=== PATIENT | male | born 1930 | race Asian ===

== ENCOUNTER → 2016-03-04 | Day surgery (SDC) | payer OTHER ==
[~2016-03-04] VITALS: Ht 160 cm; Wt 68.0 kg
[~2016-03-04] MED LIST: ACETAMINOPHEN 325 MG TAB PO PRN; ASPEC81 PO; ATEN-173 PO; ATOR-54 PO; B-COTAB18 PO; BROM0.07 OPL; FENTANYL CITRATE INJ 50 MCG/1 ML 2 ML VIAL ONE; FLM4 PO; GATI0.5S OPL; ISOS60TA2 PO; LEVO75TA5 PO; METF500T PO; MIDAZOLAM HCL 1 MG/ML 2ML VIAL ONE; NITR0.4S UT; PRED1SUS3 OPL; PRLSR20 PO; PRSUNK PO; SODIUM CHLORIDE 0.9% 1000ML 1,000 ML IV SCH
[2016-03-04 07:47] VITALS: BP 164/63; PULSE 56; TEMP 36.8; O2SAT 96; Ht 160 cm; Wt 68.0 kg
--- NOTE | 2016-03-04 11:11 | Procedure Note ---
Pre-Mod Sedation Assessment General Date of Moderate Sedation: Mar 04, 2016. Vital Signs: Vital Signs Past 12 Hours Date Time Temp Pulse Resp B/P Pulse Ox O2 Delivery O2 Flow Rate FiO2 03/04/16 07:47 36.8 56 16 164/63 96 Room Air Review Cardiovascular: regular rate, rhythm, no edema, no JVD Abdomen: non tender, soft Lungs: lungs clear, normal breath sounds Airway Class: II Pre-Sedation Airway Assessment Oral Cavity: Dentures Able to Visualize Vocal Cords: No Short Thick Neck: No Hx of Sleep Apnea: No Smoking Status: Former Smoker Mallampati Classification: Class II ASA Classification: Class II Procedure Planning Contraindications-for Mod Sed: None Yes Notes The planned sedation has been discussed with the patient and consent obtained. I have identified the patient, determined the appropriateness of sedation and have assessed the patient immediately prior to the procedure. All medicine(s) and interventions are by my order.
--- NOTE | 2016-03-04 12:37 | Procedure Note ---
Post-Mod Sedation Assessment General Date of Moderate Sedation Mar 04, 2016. Vital Signs: Vital Signs Past 12 Hours Date Time Temp Pulse Resp B/P Pulse Ox O2 Delivery O2 Flow Rate FiO2 03/04/16 12:30 56 16 156/67 97 Room Air 03/04/16 12:25 61 16 157/82 99 Room Air 03/04/16 12:20 62 16 160/84 99 Room Air 03/04/16 12:15 60 16 156/62 98 Room Air 03/04/16 07:47 36.8 56 16 164/63 96 Room Air Review - Discharge Criteria Vital Signs Stable: Yes Alert/Oriented/Conversant: Yes Returned to Baseline Mental St: Yes Nausea Absent/Minimal: Yes Pain/Discomfort/Absent/Minimal: Yes Normal/Baseline Respirations: Yes Active Bleeding?: No Pt Received D/C Instructions: Yes Prescriptions Given: None Specific Proced. D/C Criteria Distal Pulses Present (Cardiac: Yes Groin site assessed-Card Cath: Yes Voided Prior To Discharge: N/A Discharged Patients Adult Escort/Transportation: Yes
--- NOTE | 2016-03-04 13:12 | Cardiac Catheterization ---
Procedure Note Procedure Date Mar 04, 2016. Pre-Procedure Diagnosis Angina, Positive Stress Test, CAD AUC Score 7 Post-Procedure Diagnosis Severe CAD Procedure(s) Performed Coronary Angiography, Aortography, Femoral Artery Angiography Barrel Polisher Dr. Duncan [employer] Administrative Assistant(s) Alexandra Estimated Blood Loss 25 Medication(s) Fentanyl, Versed, Lidocaine 1% Summary of Findings Indication: History of CAD s/p 3vCABG 1994, + stress test, angina Access: 6Fr Right Femoral Catheters: JR4, JL4, JEFF, Multipurpose, Pigtail Findings: LM - Long, 20-30% distal disease LAD - Subtotal occlusion in proximal segment, completely occluded at take-off of 1st diagonal. Circumflex - 30% ostial disease, mild mid segment disease. Large high OM1 without significant disease. No evidence of competitive flow in circumflex system RCA - Occluded in proximal segment HOFF-LAD - Patent. No disease at anastomosis. 70-80% stenosis in small distal , apical segment. HOFF retrofills mid LAD and 1st diagonal. In mid LAD there is a 90% stenosis. SVG-RCA - Patent. No disease at anastomosis to R-PLB. Retrofills small PDA. Sequential 70% lesions in distal and mid RCA. SVG-OM - Occluded at ostium. Aortography - Mild AI. No evidence of thoracic aortic aneurysm. - No infrarenal abdominal aortic aneurysm. Atherosclerotic plaque present. 30-40% ostial right iliac stenosis. No other significant iliac disease. Arterial Closure: Mynx Summary: 1. Severe 2 vessel [place] coronary artery disease - Occluded proximal LAD. - Occluded proximal RCA - Mild circumflex disease 2. Patient HOFF-LAD, SVG-RCA. Occluded SVG-Ramus - Distal LAD 70-80% stenosis after HOFF anastomosis (Vessel too small for intervention). Mid LAD 90% stenosis upstream from HOFF anastomosis Recommendations: Medical management of non-intervenable [place] coronary artery disease. High-dose statin Continued risk factor modification Hemodynamics Rest Ao: 154/58/94 Final Ao: 150/62/98 LV: n/a Recommendations Medical therapy and/or Counseling Specimens None Radiation Exposure (mGy) 2153 Contrast (mls) 165 Fluids (cc crystalloids) 130 Drains None Anesthesia Moderate Procedural Complication(s) None Disposition Investigator Internal Affairs Holding/Recovery ACC Data Cardiac Status Clinical evaluation leading to the procedure CAD Presntation: Stable angina, Positive Stress Test Anginal Classification: CCS III Heart Failure: No Cardiogenic Shock w/in 24Hrs: No Cardiac Arrest w/in 24Hrs: No Imaging studies past 6 months: Yes Stress studies past 6 months: Yes Standard Exercise Stress Test: No Stress Echocardiogram: No Stress Testing w/SPECT MPI: Yes - Positive, Risk/Extent of Ischemia (High) Cardiac CTA: No Coronary Anatomy Dominant: Right Left Main (% Stenosis): Distal (30) LAD (% Stenosis): Proximal (99), Mid (100, 90%), Distal (75) Circumflex (% Stenosis): Ostial (30) RCA (% Stenosis): Proximal (100) Grafts - LAD (%): Normal Grafts - Circumflex (%): Ostial (100) Grafts - RCA (%): Normal Diagnostic Physician's Name: Giorgio Duncan MD Status: Elective Closure Device Percutaneous Entry Location: Femoral Closure Device: Mynx Recommendations: Medical therapy and/or Counseling Intraprocedure Events Significant Dissection: No Perforation: No
--- NOTE | 2016-03-04 13:21 | Discharge Instructions ---
Discharge Instructions Procedure Procedure Date: Mar 04, 2016. Reason for Visit: Chest Pain. Discharge Discharge Date: Mar 04, 2016. Discharge Diagnosis: Coronary artery disease Last Recorded Wt (Kilograms): 68 Medications Stopped Medication(s): Hold Metformin for 48 hours post procedure Anesthesia Post Anesthesia Instructions: If you have had General Anesthesia or IV Sedation: * Do not drive today. * Resume driving when surgeon permits. * Do not make important decisions or sign legal documents today. * Call surgeon for: 1. Temperature elevations greater than 101 degrees F. 2. Uncontrollable pain. 3. Excessive bleeding. 4. Persistent nausea and vomiting. 5. Medication intolerance (nausea, vomiting or rash). * For nausea and vomiting use only clear liquids such as: tea, soda, bouillon until nausea subsides, then gradually increase diet as tolerated. * If you have any concerns or questions, call your surgeon's office. If physician is unavailable and it is an emergency, call 911 or go to the nearest emergency room. Instructions Activity Recommendations: limitations as noted below (Avoid flexing right hip for 24 hours. No heavy lifting (>20 lbs) for 72 hours. Resume normal activites gradually after 72 hours), shower/bathe limit (No soaking bath for 72 horus) Recommended Home Diet: resume previous diet Allergies: Coded Allergies: Milk (Verified Adverse Reaction, Unknown, GI SYMPTOMS, 08/08/15) DOESN'T TOLERATE COLD MILK Follow Up Follow-up with: Follow-up with Gayla Mohan in 2-3 weeks. Rebeka Beard Recommendations: Call your doctor if: * Temperature above 101 degrees * Pain not relieved by pain medicine ordered * There is increased drainage or redness from any incision * You have any unanswered questions or concerns. Your Doctors Instructions noted above were prepared by provider Dae Duncan. Patient Signature Section: Patient Instructions Signature Page Dara Vaughn Patient (or Guardian) Signature/Date: I have read and understand the instructions given to me by my caregivers. Caregiver/RN/Doctor Signature/Date: The above-named patient and/or guardian has received patient instructions on this date. + Original Patient Signature Page (only) stays with chart. Please make copy for patient.
[2016-03-04 16:00] VITALS: BP 165/72; PULSE 54; O2SAT 99
--- NOTE | 2016-03-25 06:35 | EDITING REQUIRED CODING QUERY ---
SUPPORTING DIAGNOSIS NEEDED Dr. Duncan, A supporting diagnosis is required for the test/procedure performed on this patient in order for us to be reimbursed by the patient's insurance. Please provide a supporting diagnosis for the following test/procedure listed below next to the test name along with your signature. *If there is no additional diagnosis for this patient that would support the following test/procedure please document that below next to the test/procedure. Test(s)/Procedure(s) that require a supporting diagnosis: * ([id number]) ABDOMEN AORTOGRAM DIAGNOSIS: Common iliac artery stenosis DATE OF SERVICE: 03/04/16 Provider Signature: Date: Thank you Doug Paez [facility] Information Management Once completed, please kindly fax back to [phone] For questions please call [phone]
== END | disposition home or self-care (01) ==
LOC: C.CATH 06:47
PROVIDERS: ATTEND Internal Medicine Interventional Cardiology
DX: I25.119 Atherosclerotic heart disease of native coronary artery with unspecified angina pectoris (principal); Z95.1 Presence of aortocoronary bypass graft; I10 Essential (primary) hypertension; E78.00 Pure hypercholesterolemia, unspecified; Z80.42 Family history of malignant neoplasm of prostate; Z82.49 Family history of ischemic heart disease and other diseases of the circulatory system; N40.0 Benign prostatic hyperplasia without lower urinary tract symptoms; Z79.82 Long term (current) use of aspirin; I77.1 Stricture of artery

== ENCOUNTER → 2016-05-02 | Outpatient (CLI) | payer OTHER ==
[~2016-05-02] MED LIST changes: -ACETAMINOPHEN 325 MG TAB PO PRN; -ASPEC81 PO; -B-COTAB18 PO; -BROM0.07 OPL; -FENTANYL CITRATE INJ 50 MCG/1 ML 2 ML VIAL ONE; -GATI0.5S OPL; -METF500T PO; -MIDAZOLAM HCL 1 MG/ML 2ML VIAL ONE; -NITR0.4S UT; -PRED1SUS3 OPL; -PRLSR20 PO; -SODIUM CHLORIDE 0.9% 1000ML 1,000 ML IV SCH
[2016-05-02 09:40] LABS: ALT/SGPT 28 U/L (12-78); AST/SGOT 30 U/L (15-37); BLOOD UREA NITROGEN 16 mg/dl (7-18); BUN/CREATININE RATIO 19.5 (10-20); CALCIUM 8.8 mg/dl (8.5-10.1); CARBON DIOXIDE 28 mmol/L (21-32); CHLORIDE 106 mmol/L (98-107); CREATININE 0.84 mg/dl (0.60-1.40); GLUCOSE 114 mg/dl (70-99); POTASSIUM 4.1 mmol/L (3.5-5.1); SODIUM 143 mmol/L (136-145)
[2016-05-02 09:50] LABS: CHOLESTEROL 97 mg/dl (0-200); CHOLESTEROL/HDL RATIO 2.6; HDL CHOLESTEROL 37 mg/dl; LDL CHOLESTEROL CALCULATED 27 mg/dl; TRIGLYCERIDES 163 mg/dl (0-150); VERY LOW DENSITY LIPOPROT CALC 33 mg/dl
[2016-05-02 11:08] LABS: ESTIMATED AVERAGE GLUCOSE 128 mg/dl; HA1C FLAG Normal (Normal)
== END | disposition home or self-care (01) ==
LOC: C.LAB1850 07:18
PROVIDERS: ATTEND Internal Medicine
DX: R73.9 Hyperglycemia, unspecified (principal); E03.9 Hypothyroidism, unspecified; E78.00 Pure hypercholesterolemia, unspecified; I25.10 Atherosclerotic heart disease of native coronary artery without angina pectoris

== ENCOUNTER → 2016-08-22 | Outpatient (CLI) | payer OTHER ==
[2016-08-23 06:55] LABS: ESTIMATED AVERAGE GLUCOSE 137 mg/dl; HA1C FLAG Normal (Normal)
[2016-08-26 15:57] LABS: ALBUMIN 3.4 G/DL (3.8-4.8); TOTAL PROTEIN 6.1 G/DL (6.2-8.3)
--- NOTE | 2016-08-27 08:14 | CODING QUERY MEDICAL NECESSITY ---
SUPPORTING DIAGNOSIS NEEDED A supporting diagnosis is required for the test/procedure performed on this patient in order for us to be reimbursed by the patient's insurance. Please provide a supporting diagnosis for the following test/procedure listed below next to the test name along with your signature. *If there is no additional diagnosis for this patient that would support the following test/procedure please document that below next to the test/procedure. Test(s)/Procedure(s) that require a supporting diagnosis: * VITAMIN B12 DIAGNOSIS: Provider Signature: Date: Thank you Vanessa [place] [employer] Information Management Once completed, please kindly fax back to [phone] For questions please call [phone]
== END | disposition home or self-care (01) ==
LOC: C.LAB1850 15:47
PROVIDERS: ATTEND Psychiatry & Neurology Neurology
DX: G62.9 Polyneuropathy, unspecified (principal); R73.9 Hyperglycemia, unspecified

== ENCOUNTER → 2016-12-13 | Outpatient (CLI) | payer OTHER ==
[2016-12-13 09:29] LABS: BASO % 0.4 %; BASO ABS # 0.02 K/uL (0-0.2); COMPLETE YES; EOS % 4.3 %; HEMATOCRIT 41.6 % (42-52); LYMPH % 44.2 %; LYMPH ABS # 1.97 K/uL (1.2-3.4); MEAN CELL VOLUME 88.9 fL (80-100); MEAN CORPUSCULAR HEMOGLOBIN 29.3 pg (25-34); MEAN CORPUSCULAR HGB CONC 32.9 g/dl (32-36); MEAN PLATELET VOLUME 10.1 fL (7.4-10.4); MONO % 6.1 %; PLATELET COUNT 221 K/uL (130-400); RED BLOOD COUNT 4.68 M/uL (4.7-6.1); WHITE BLOOD COUNT 4.46 K/uL (4.8-10.8)
[2016-12-13 09:40] LABS: ALT/SGPT 28 U/L (12-78); AST/SGOT 35 U/L (15-37); BLOOD UREA NITROGEN 19 mg/dl (7-18); BUN/CREATININE RATIO 20.9 (10-20); CALCIUM 8.4 mg/dl (8.5-10.1); CARBON DIOXIDE 29 mmol/L (21-32); CHLORIDE 106 mmol/L (98-107); GLUCOSE 102 mg/dl (70-99); POTASSIUM 4.4 mmol/L (3.5-5.1); SODIUM 139 mmol/L (136-145)
[2016-12-13 09:51] LABS: CHOLESTEROL 81 mg/dl (0-200); CHOLESTEROL/HDL RATIO 2.7; HDL CHOLESTEROL 30 mg/dl; LDL CHOLESTEROL CALCULATED 26 mg/dl; TRIGLYCERIDES 123 mg/dl (0-150); VERY LOW DENSITY LIPOPROT CALC 25 mg/dl
[2016-12-13 10:25] LABS: ESTIMATED AVERAGE GLUCOSE 131 mg/dl; HA1C FLAG Normal (Normal)
[2016-12-16 15:51] LABS: ALBUMIN 3.4 G/DL (3.8-4.8); GAMMA GLOBULIN 1.2 G/DL (0.8-1.7); TOTAL PROTEIN 6.7 G/DL (6.2-8.3)
== END | disposition home or self-care (01) ==
LOC: C.LAB1850 07:29
PROVIDERS: ATTEND Internal Medicine
DX: E78.00 Pure hypercholesterolemia, unspecified (principal); I25.10 Atherosclerotic heart disease of native coronary artery without angina pectoris; R73.9 Hyperglycemia, unspecified; G62.9 Polyneuropathy, unspecified

== ENCOUNTER → 2017-04-03 | Outpatient (CLI) | payer OTHER | END | disposition home or self-care (01) | LOC: C.LABSPEC 17:23 | PROVIDERS: ATTEND Urology | DX: H81.10 Benign paroxysmal vertigo, unspecified ear (principal); N39.0 Urinary tract infection, site not specified ==

== ENCOUNTER 2018-06-10 14:47 | Inpatient (IN) ==
[2018-06-10 15:45] LABS: Basophils # (auto) 0.01 K/uL (0-0.2); Basophils % (auto) 0.2 %; Eosinophils % (auto) 2.1 %; Hematocrit (blood only) 38.2 % (42-52); Hemoglobin 12.4 g/dL (14.0-18.0); Immature Granulocytes # (auto) 0.01 K/uL (0.00-0.02); Immature Granulocytes % (auto) 0.2 %; Lymphocytes # (auto) 1.25 K/uL (1.2-3.4); Lymphocytes % (auto) 26.8 %; Mean Corpuscular Hgb Conc 32.5 g/dL (32-36); Mean Corpuscular Volume 88.4 fL (80-100); Mean Platelet Volume 10.9 fL (7.4-10.4); Monocytes # (auto) 0.33 K/uL (0.11-0.59); Monocytes % (auto) 7.1 %; Neutrophils # (auto) 2.96 K/uL (1.4-6.5); Neutrophils % (auto) 63.6 %; Platelet Count 196 K/uL (130-400); RDW Coefficient of Variation 13.3 % (11.5-14.5); RDW Standard Deviation 42.8 fL (36.4-46.3); Red Blood Count 4.32 M/uL (4.7-6.1); White Blood Count 4.66 K/uL (4.8-10.8)
[2018-06-10 15:46] LABS: pH VBG 7.37 (7.36-7.41)
--- NOTE | 2018-06-10 15:57 | XRay Report ---
XR chest 1V portable CLINICAL HISTORY: 87 years-old Male presenting with Dyspnea. TECHNIQUE: Portable upright AP view of the chest was obtained. COMPARISON: 08/05/2011. FINDINGS: Median sternotomy wires and mediastinal surgical clips unchanged. Cardiac silhouette moderately enlar ged. Pulmonary vascular prominence noted. Bronchial wall cuffing. Mildly low lung volumes. Minimal ba silar opacities. No pleural effusion or pneumothorax. Degenerative changes of the thoracic spine. Upp er abdomen normal. IMPRESSION: 1. Cardiac megaly with volume overload and congestive change. No malika pulmonary edema. 2. Bibasilar atelectasis with mildly low lung volumes. Electronically signed by: Jonn Mena M.D. 06/10/2018 3:56 PM
[2018-06-10 16:03] LABS: Alanine Aminotransferase 30 U/L (12-78); Albumin Level 3.5 gm/dl (3.4-5.0); Aspartate Aminotransferase 55 U/L (15-37); BUN Creatinine Ratio 14.4 (10-20); Blood Urea Nitrogen 11 mg/dl (7-18); Calcium 8.4 mg/dl (8.5-10.1); Carbon Dioxide 27 mmol/L (21-32); Chloride 109 mmol/L (98-107); Creatinine Clr Calc Pharmacy 57.5 ml/min; Est GFR (African American) 93.1; Est GFR (Non-African American) 80.3; Glucose 87 mg/dl (70-99); Magnesium 1.8 mg/dl (1.8-2.4); Potassium 4.1 mmol/L (3.5-5.1); Sodium 140 mmol/L (136-145)
[2018-06-10 16:07] LABS: Alkaline Phosphatase 53 U/L (45-117); Bilirubin,Total 0.6 mg/dl (0.2-1); Globulin 3.6 gm/dl (2.5-4.0); Total Protein 7.1 gm/dl (6.4-8.2); Troponin I < 0.015 ng/ml (0-0.045)
[2018-06-10 16:37] LABS: Partial Thromboplastin Ratio 0.9; Partial Thromboplastin Time 25.1 Seconds (21.0-31.0); Prothrombin Time 10.7 Seconds (9.0-12.0)
[2018-06-10] MEDS ORDERED: FUROSEMIDE 40 MG/4 ML VIAL IV STA (17:29)
--- NOTE | 2018-06-10 17:44 | History & Physical Report ---
Date of Service June 10, 2018 Assessment & Plan (1) Hypoxia: - Admit to tele with worsening respiratory status with possible new onset CHF. - O2 sats initially dropped to 87% while in the ER, pt was placed on 2 L O2 and sats have been stable in high 90s. - CXR reviewed with volume overload - lasix 40 mg IV administered and working well. No further lasix at this time, reasses in am pending urine outs and follow PRP for changes in Cr. - Monitor strict I/Os, daily weights - Wean O2 as able, does not use at home. (2) CAD (coronary artery disease) of artery bypass graft: - Continue atenolol 25 mg daily, atorvastatin 40 mg daily, imdur 60 mg da yordy - CXR showing increased volume overload - Trend cardiac biomarkers, initial set was negative - EKG reviewed as above - Check 2 D echo - PT/OT consulted (3) Hyperlipidemia: - Cont statin (4) Hypertension: - Cont BP meds as above (5) GERD (gastroesophageal reflux disease): - Continue omeprazole (6) Type 2 diabetes mellitus: - hold metformin - ISS with accuchecks achs - A1C = 6.7 last summer, will recheck with am labs (7) BPH (benign prostatic hyperplasia): - Continue Flomax and Proscar - No issues with urination since being given lasix. If decreased outs then bladder scan to measure if retaining. (8) Benign essential tremor: - Continue vitamin supplementation, well controlled (9) Peripheral neuropathy: - Continue lyrica - Pt is following with neurology as outpatient. He has had EMG performed as outpatient - Likely worsening neuropathy due to edema in feet with possible new onset CHF (10) Hypothyroidism: - Continue levothyroxine 75 mcg daily (11) DVT prophylaxis: - [employer] Conveyor Installer ipad was used during my visit with the patient as the patient is primarly Slovak speaking with very broken Albanian. No family was at bedside during my exam. History of Present Illness Primary Care Provider: Darin Campbell MD This is a 87 yo Slovak speaking M with PMhx of CAD s/p CABG x 3in 1994 for an acute HI, HTN, HLD, osteoarthritis, BPH with LUTS, GERD, hypothyroidism, peripheral neuropathy, and benign essential tremor who presents with worsening shortness of breath. Pt notes this has been coming on for 20-24 days and progressively worsening. He was walking this morning and had significant shortness of breath, he denies any chest pain or discomfort. He does not need oxygen at home. He feels swollen in his legs and feet, and feels his neuropathy in both feet is worse in the past few days. When questioned about diet and he considers it well balanced. He drinks alcohol very rarely. Pt typically is able to walk for 30 minutes at a time, and does this for routine exercise 3x per week. Pt reports being treated for pneumonia about 6 months ago, and has not felt up to his baseline since then. He does follow routinely with cardiology- Dr. Yuen. Pt was last seen 1 month ago as routine f/u and everything at that appointment went well, no med changes. Pt has been administered 1 dose of Lasix 40 mg IV and has been up walking without difficult to urninate now 3x. CXR reviewed showing volume overload. Allergies Allergy/AdvReac Type Severity Reaction Status Date / Time milk AdvReac Unknown GI SYMPTOMS Verified 06/10/18 16:22 Home Medications Home Medications Medication Instructions Recorded Confirmed Type aspirin [Aspir-81] 81 mg PO DAILY 02/26/18 06/10/18 History atenolol [Tenormin] 25 mg PO DAILY 02/26/18 06/10/18 History atorvastatin [Lipitor] 40 mg PO DAILY 02/26/18 06/10/18 History finasteride [Proscar] 5 mg PO DAILY 02/26/18 06/10/18 History isosorbide mononitrate 60 mg PO DAILY 02/26/18 06/10/18 History levothyroxine [Synthroid] 75 mg PO DAILY 02/26/18 06/10/18 History lidocaine 1 applic TOPICAL TID PRN 02/26/18 06/10/18 History metformin [Glucophage] 500 mg PO Q12 02/26/18 06/10/18 History nitroglycerin [Nitrostat] 0.4 mg SUBLINGUAL UD PRN 02/26/18 06/10/18 History omeprazole 20 mg PO DAILY 02/26/18 06/10/18 History pregabalin [Lyrica] 150 mg PO BID 02/26/18 06/10/18 History tamsulosin [Flomax] 0.4 mg PO DAILY 02/26/18 06/10/18 History vitamin B complex 1 tab PO DAILY 06/10/18 06/10/18 History Past Med/Surg History Medical History Hypoxia Hypothyroidism Peripheral neuropathy Benign essential tremor Osteoarthritis CAD (coronary artery disease) of artery bypass graft BPH (benign prostatic hyperplasia) Hyperlipidemia GERD (gastroesophageal reflux disease) Type 2 diabetes mellitus Hypertension Surgical History History of coronary artery bypass graft Family History Other No significant family history Social History Preferred Language: Slovak Current Living Situation: Alone Feels Safe at Home: Yes Smoking Status: Never smoker Review of Systems Constitutional: No fever, sweats or chills Eyes: No diplopia, no worsening or blurred vision ENT: normal hearing, no trouble swallowing Respiratory: No cough, sputum, + ARIZMENDI and SOB as per HPI. Cardiovascular: No chest pain, tightness or palpitations Abdomen: No pain, nausea, + bloating, no vomiting, diarrhea or constipation Musculoskeletal: No joint pain, calf pain, swelling Neurologic: No weakness, + burning sensation in feet bilaterally, no balance problems Psychiatric: No anxiety or depression Skin: No rash or itch Physical Exam Vital Signs (Past 24 Hours): Last Vital Signs Temp 36.8 C 06/10/18 14:49 Pulse 55 L 06/10/18 17:32 Resp 18 06/10/18 17:32 BP 171/82 H 06/10/18 17:32 Pulse Ox 97 06/10/18 17:32 Physical Exam: General: awake, alert, no apparent distress, + Slovak speaking Head: Normocephalic, atraumatic ENT: PERRL, EOMI, no pharyngeal exudate, mucous membranes moist Chest: Clear to auscultation, on 2L via NC, no adventitious breath sounds Cardiac: Regular rate and rhythm, no murmur, no JVD, normal peripheral pulses, good capillary refill Abdominal: NABS x 4 quadrants, soft, +mildly distended, nontender to palpation, no rebound, guarding or tenderness Extremities: Normal inspection, 1+ nonpitting peripheral edema bilaterally, no erythema, calfs nontender to palpation Psych: Normal mood and affect Neuro: AAO x 3, strength intact bilaterally and related 5/5, no motor deficits, speech is clear Constitutional: WD/WN, vitals as above Eyes: normal visual lopez by confrontation and + anicteric sclerae Neck: normal visual inspection and trachea midline Respiratory: normal respiratory effort; no respiratory distress Auscultation: + crackles; no wheezes Cardiovascular: Rate/Rhythm: regular rate and regular rhythm Gastrointestinal (Abdomen): Inspection/Auscultation: abdomen not distended Percussion/Palpation: abdomen soft; abdomen nontender Musculoskeletal: Head/Neck/Chest: normocephalic and head atraumatic 2+ pitting LE edema, + pedal pulses Skin: no rashes, warm and dry Neurologic: awake; not confused Speech / Cognition: normal speech Psychiatric: A+Ox3, euthymic affect Lymphatic: Exam as done by Vanessa Gonzalez DO Results & Data Diagnostic Findings XR chest 1V portable CLINICAL HISTORY: 87 years-old Male presenting with Dyspnea. TECHNIQUE: Portable upright AP view of the chest was obtained. COMPARISON: 08/05/2011. FINDINGS: Median sternotomy wires and mediastinal surgical clips unchanged. Cardiac silhouette moderately enlarged. Pulmonary vascular prominence noted. Bronchial wall cuffing. Mildly low lung volumes. Minimal basilar opacities. No pleural effusion or pneumothorax. Degenerative changes of the thoracic spine. Upper abdomen normal. IMPRESSION: 1. Cardiac megaly with volume overload and congestive change. No malika pulmonary edema. 2. Bibasilar atelectasis with mildly low lung volumes. ECG Additional Comments: 10-JUN-2018 15:45:32 [facility] Sinus bradycardia with sinus arrhythmia Possible Anterior infarct (cited on or before 24-JUL-2003) Abnormal ECG When compared with ECG of 29-NOV-2011 09:27, Premature atrial complexes are no longer Present Nonspecific T wave abnormality, improved in Lateral leads 25mm/s 10mm/mV 150Hz 8.0 SP2 12SL 241 JAJA: 15 Referred by: Unconfirmed Vent. rate 51 BPM NC interval 176 ms QRS duration 86 ms QT/QTc 516/475 ms P-R-T axes * 66 82 Code Status & VTE Plan Code Status Full - discussed at bedside Supervising Physician Co-Signing Physician Notes Pt seen and examined by me. States his breathing is better. No chest pain, n/v. Ate dinner in the ED without issue. Has been urinating frequently s/p lasix Agree with HPI/ROS as noted by PA See above for my exam in PE section Agree with plan as outlined above CHF exacerbation, new dx ECHO pending Lasix Monitor trops
[2018-06-10 17:46] LABS: NT Pro B Type Natriuretic Pept 746 pg/ml (0-1800)
[2018-06-10] MEDS ORDERED: ACETAMINOPHEN 325 MG TAB PO PRN (18:07)
[2018-06-10] MEDS ORDERED: DEXTROSE 50% 50 ML SYRINGE IV PRN (18:07)
[2018-06-10] MEDS ORDERED: CARBOHYDRATES FOR HYPOGLYCEMIA PO PRN (18:07)
[2018-06-10] MEDS ORDERED: GLUCOSE 40% GEL 15 GM TUBE PO PRN (18:07)
[2018-06-10] MEDS ORDERED: ONDANSETRON INJ 2 MG/ML 2 ML VIAL IV PRN (18:07)
[2018-06-10] MEDS ORDERED: GLUCOSE 10 TABS/TUBE PO PRN (18:07)
[2018-06-10] MEDS ORDERED: NITROGLYCERIN SL 0.4 MG/TAB TAB SL PRN (18:09)
[2018-06-10] MEDS ORDERED: LIDOCAINE 4% CREAM 15 GM TUBE EXT PRN (18:09)
[2018-06-10 18:40] LABS: Appearance Urine Clear (Clear); Bacteria Urine Automated Negative (Negative); Bilirubin Urine Negative (Negative); Blood Urine Negative (Negative); Color Urine Yellow; Epithelial Cell Urine Auto 0-5 /lpf (0-5); Glucose Urine UA Negative (Negative); Ketones Urine Negative (Negative); Leukocyte Esterase Urine Trace (Negative); Nitrite Urine Negative (Negative); Protein Urine Negative (Negative); RBC Urine Automated 0-4 /hpf (0-4); Specific Gravity Urine 1.011 (1.000-1.030); Urobilinogen Urine Negative (Negative); pH Urine 6.5 (4.5-7.5)
[2018-06-10] MEDS ORDERED: GLUCAGON FOR INJ 1 MG VIAL IM PRN (19:15)
[2018-06-10] MEDS: INSULIN ASPART 100 UNITS/ML 3 ML PEN SC SCH (22:05)
[2018-06-10] MEDS: ENOXAPARIN INJ 40 MG/0.4 ML SYR SQ SCH (22:10)
[2018-06-10] MEDS: PREGABALIN 150 MG CAP PO SCH (22:19)
[2018-06-10] MEDS: METFORMIN HCL 500 MG TAB PO SCH (22:25)
--- NOTE | 2018-06-10 23:33 | Emergency Department Note ---
Entered by Nicole Edwards acting as a scribe for History of Present Illness General Chief complaint: Respiratory Problems Stated complaint: LUNG PROBLEM Time Seen by Provider: 06/10/18 15:07 Source: patient Mode of arrival: ambulatory Limitations: no limitations History of Present Illness Provider complaint: shortness of breath Onset (ago): month(s) 1 Location: chest Pain Consistency: + other (persistent) Quality: + other (SOB) Associated symptoms: + cough; no chest pain The patient is an 87 year old male with a past medical history of HTN, hyperlipidemia, tyle 2 diabetes, GERD, BPH, hypothyroidism, and CAD s/p CABG who presents to the Emergency Room with complaints of a persistent shortness of breath that began a month ago. The patient denies any chest pain or leg swelling but notes he does have a mild cough in the mornings. He also denies any recent travels or antibiotic use as well as any sick contacts. He notes that his current symptoms do not feel similar to his prior heart attack. The patient also reports that he was evaluated at [facility] prior to arrival and was referred to the ER for a suspected pneumonia. He denies any tobacco use or history of blood clots. Home Medications Home Medications Medication Instructions Recorded Confirmed Type aspirin [Aspir-81] 81 mg PO DAILY 02/26/18 06/10/18 History atenolol [Tenormin] 25 mg PO DAILY 02/26/18 06/10/18 History atorvastatin [Lipitor] 40 mg PO DAILY 02/26/18 06/10/18 History finasteride [Proscar] 5 mg PO DAILY 02/26/18 06/10/18 History isosorbide mononitrate 60 mg PO DAILY 02/26/18 06/10/18 History levothyroxine [Synthroid] 75 mg PO DAILY 02/26/18 06/10/18 History lidocaine 1 applic TOPICAL TID PRN 02/26/18 06/10/18 History metformin [Glucophage] 500 mg PO Q12 02/26/18 06/10/18 History nitroglycerin [Nitrostat] 0.4 mg SUBLINGUAL UD PRN 02/26/18 06/10/18 History omeprazole 20 mg PO DAILY 02/26/18 06/10/18 History pregabalin [Lyrica] 150 mg PO BID 02/26/18 06/10/18 History tamsulosin [Flomax] 0.4 mg PO DAILY 02/26/18 06/10/18 History vitamin B complex 1 tab PO DAILY 06/10/18 06/10/18 History Allergies Allergy/AdvReac Type Severity Reaction Status Date / Time milk AdvReac Unknown GI SYMPTOMS Verified 06/10/18 16:22 Past Med/Surg History Medical History Hypoxia Hypothyroidism Peripheral neuropathy Benign essential tremor Osteoarthritis CAD (coronary artery disease) of artery bypass graft BPH (benign prostatic hyperplasia) Hyperlipidemia GERD (gastroesophageal reflux disease) Type 2 diabetes mellitus Hypertension Surgical History History of coronary artery bypass graft Family History Other No significant family history Social History Communication Ability: Yi Beliefs That Will Affect Care: None Current Living Situation: Alone Other Information That Helps Us Care for You: No Feels Safe at Home: Yes Safety Concerns: Feels Safe At This Time Smoking Status: Former smoker Hx Alcohol Use: Yes Hx Substance Use: No Review of Systems See HPI for pertinent positives & negatives. and A total of 10 systems reviewed and were otherwise negative Physical Exam Vital Signs Vital Signs - 24 hr 06/10/18 16:31 06/10/18 16:35 06/10/18 16:38 Temperature Temperature Source Pulse Rate 53 L 55 L Pulse Rate [Finger] Pulse Rate [Right Brachial] Pulse Rate from SpO2 Sensor 52 L 55 L Pulse Rhythm [Right Brachial] Pulse Strength [Right Brachial] Respiratory Rate 18 18 Respiratory Effort / Characteristics Respiratory Depth Respiratory Pattern Blood Pressure 167/81 H Blood Pressure [Left Arm] Blood Pressure [Right Arm] Blood Pressure Mean 109 Blood Pressure Mean [Left Arm] Blood Pressure Mean [Right Arm] Blood Pressure Position [Right Arm] Pulse Oximetry 95 95 96 Oxygen Delivery Method Room Air Room Air Room Air Oxygen Flow Rate 06/10/18 17:01 06/10/18 17:32 06/10/18 17:33 Temperature Temperature Source Pulse Rate 51 L 55 L 51 L Pulse Rate [Finger] Pulse Rate [Right Brachial] Pulse Rate from SpO2 Sensor 50 L 55 L 50 L Pulse Rhythm [Right Brachial] Pulse Strength [Right Brachial] Respiratory Rate 19 18 20 Respiratory Effort / Characteristics Respiratory Depth Respiratory Pattern Blood Pressure 154/78 H 171/82 H Blood Pressure [Left Arm] Blood Pressure [Right Arm] Blood Pressure Mean 103 111 Blood Pressure Mean [Left Arm] Blood Pressure Mean [Right Arm] Blood Pressure Position [Right Arm] Pulse Oximetry 95 97 98 Oxygen Delivery Method Nasal Cannula Nasal Cannula Oxygen Flow Rate 2 2 06/10/18 17:35 06/10/18 17:36 06/10/18 18:00 Temperature Temperature Source Pulse Rate 59 L Pulse Rate [Finger] Pulse Rate [Right Brachial] Pulse Rate from SpO2 Sensor 59 L Pulse Rhythm [Right Brachial] Pulse Strength [Right Brachial] Respiratory Rate 13 Respiratory Effort / Characteristics Respiratory Depth Respiratory Pattern Blood Pressure 182/87 H Blood Pressure [Left Arm] Blood Pressure [Right Arm] Blood Pressure Mean 118 Blood Pressure Mean [Left Arm] Blood Pressure Mean [Right Arm] Blood Pressure Position [Right Arm] Pulse Oximetry 86 L 99 Oxygen Delivery Method Room Air Nasal Cannula Nasal Cannula Oxygen Flow Rate 2 06/10/18 20:00 06/10/18 21:00 06/10/18 23:47 Temperature 36.7 C Temperature Source Oral Pulse Rate 67 55 L Pulse Rate [Finger] Pulse Rate [Right Brachial] Pulse Rate from SpO2 Sensor Pulse Rhythm [Right Brachial] Pulse Strength [Right Brachial] Respiratory Rate 20 Respiratory Effort / Characteristics Non-Labored Spontaneous SOB on Exertion Respiratory Depth Normal Respiratory Pattern Regular Blood Pressure Blood Pressure [Left Arm] 186/77 H Blood Pressure [Right Arm] Blood Pressure Mean Blood Pressure Mean [Left Arm] 113 Blood Pressure Mean [Right Arm] Blood Pressure Position [Right Arm] Pulse Oximetry 95 Oxygen Delivery Method Nasal Cannula Oxygen Flow Rate 3 06/11/18 00:01 06/11/18 03:28 06/11/18 07:30 Temperature 36.7 C 36.8 C 36.6 C Temperature Source Oral Oral Oral Pulse Rate Pulse Rate [Finger] 54 L 60 Pulse Rate [Right Brachial] 51 L Pulse Rate from SpO2 Sensor Pulse Rhythm [Right Brachial] Pulse Strength [Right Brachial] Respiratory Rate 18 16 18 Respiratory Effort / Characteristics Respiratory Depth Respiratory Pattern Blood Pressure Blood Pressure [Left Arm] 156/81 H 155/76 H Blood Pressure [Right Arm] 150/71 H Blood Pressure Mean Blood Pressure Mean [Left Arm] 106 102 Blood Pressure Mean [Right Arm] 97 Blood Pressure Position [Right Arm] Semi-fowlers Pulse Oximetry 100 95 96 Oxygen Delivery Method Room Air Oxygen Flow Rate 06/11/18 11:05 06/11/18 15:45 Temperature 36.3 C L Temperature Source Oral Pulse Rate Pulse Rate [Finger] Pulse Rate [Right Brachial] 55 L 59 L Pulse Rate from SpO2 Sensor Pulse Rhythm [Right Brachial] Regular Pulse Strength [Right Brachial] Normal Respiratory Rate 16 18 Respiratory Effort / Characteristics Non-Labored Respiratory Depth Normal Respiratory Pattern Regular Blood Pressure Blood Pressure [Left Arm] Blood Pressure [Right Arm] 109/63 170/91 H Blood Pressure Mean Blood Pressure Mean [Left Arm] Blood Pressure Mean [Right Arm] 78 117 Blood Pressure Position [Right Arm] Lying Right Lateral Pulse Oximetry 96 94 Oxygen Delivery Method Room Air Room Air Oxygen Flow Rate GENERAL: Well appearing, well nourished, NAD, non-toxic. EYE EXAM: Normal conjunctiva. PERRL, no anisocoria and EOM's grossly intact w/o pain. OROPHARYNX: Moist MM. NECK: Supple, no nuchal rigidity, no adenopathy, non-tender. No signs of meningismus. LUNGS: Bibasilar crackles, mild tachypnea. HEART: Bradycardic, no MRG. CHEST: Well-healed midline sternum scar. ABDOMEN: Abdomen soft, non-tender, normo-active bowel sounds, no masses, no rebound or guarding. BACK: No CVA TTP. SKIN: No rashes and no bruising. UPPER EXTREMITIES: Upper extremities are grossly normal. LOWER EXTREMITIES: 2+ pitting edema. No calf pain. NEURO EXAM: A and O x3. GCS 15. Moves all 4 extremities on command w/o issue. Course 1512: The patient was evaluated in room A10, and a complete history and physical examination were performed. 1737: I reviewed the patient's case with Dr. Gonzalez - [facility] Hospitalist. She will evaluate the patient for further management. Administered Medications Aspirin (Ecotrin Ectab) 81 mg PO DAILY [facility] Stop: 07/11/18 08:59 Last Admin: 06/11/18 07:35 Dose: 81 mg Documented by: [id number] Atenolol (Tenormin) 25 mg PO DAILY [facility] Stop: 07/11/18 08:59 Last Admin: 06/11/18 07:35 Dose: 25 mg Documented by: [id number] Atorvastatin Calcium (Lipitor) 40 mg PO DAILY [facility] Stop: 07/11/18 08:59 Last Admin: 06/11/18 07:35 Dose: 40 mg Documented by: [id number] Enoxaparin Sodium (Lovenox) 40 mg SQ Q24H [facility] Stop: 07/10/18 18:14 Last Admin: 06/10/18 22:10 Dose: 40 mg Documented by: [id number] Finasteride (Proscar) 5 mg PO DAILY [facility] Stop: 07/11/18 08:59 Last Admin: 06/11/18 07:35 Dose: 5 mg Documented by: [id number] Insulin Aspart (Novolog Flexpen) 0 units SC ACHS [facility] Stop: 07/10/18 20:59 Last Admin: 06/11/18 12:22 Dose: 3 units Documented by: [id number] Cosigned by: [id number] Admin: 06/11/18 08:12 Dose: 5 units Documented by: [id number] Cosigned by: [id number] Admin: 06/10/18 22:05 Dose: Not Given Documented by: [id number] Cosigned by: [id number] Isosorbide Mononitrate (Imdur Extended Rel) 60 mg PO DAILY [facility] Stop: 07/11/18 08:59 Last Admin: 06/11/18 07:35 Dose: 60 mg Documented by: [id number] Levothyroxine Sodium (Synthroid) 75 mcg PO DAILYBB [facility] Stop: 07/11/18 06:29 Last Admin: 06/11/18 05:49 Dose: 75 mcg Documented by: [id number] Metformin HCl (Glucophage) 500 mg PO BIDM [facility] Stop: 07/10/18 20:59 Last Admin: 06/11/18 07:35 Dose: 500 mg Documented by: [id number] Admin: 06/10/18 22:25 Dose: 500 mg Documented by: [id number] Pantoprazole Sodium (Protonix) 40 mg PO DAILY [facility] Stop: 07/11/18 08:59 Last Admin: 06/11/18 07:35 Dose: 40 mg Documented by: [id number] Pregabalin (Lyrica) 150 mg PO BID [facility] Stop: 07/10/18 20:59 Last Admin: 06/11/18 07:35 Dose: 150 mg Documented by: [id number] Admin: 06/10/18 22:19 Dose: 150 mg Documented by: [id number] Tamsulosin HCl (Flomax) 0.4 mg PO DAILY [facility] Stop: 07/11/18 08:59 Last Admin: 06/11/18 07:35 Dose: 0.4 mg Documented by: [id number] Vitamin B Complex (Vitamin B Complex) 1 tab PO DAILY [facility] Stop: 07/11/18 08:59 Last Admin: 06/11/18 07:34 Dose: 1 tab Documented by: [id number] Discontinued Medications Furosemide (Lasix) 40 mg IV NOW STA Stop: 06/10/18 17:30 Last Admin: 06/10/18 17:38 Dose: 40 mg Documented by: [id number] Medical Decision Making Medical Records Attestation: I reviewed the patient's medical records. Home Medications Current Medication List: was personally reviewed by me Laboratory Data Attestation: I reviewed the patient's lab results. Result diagrams: 06/11/18 07:21 06/11/18 07:21 Lab Results 06/10/18 06/10/18 06/10/18 Range/Units 15:30 15:35 15:35 WBC 4.66 L (4.8-10.8) K/uL RBC 4.32 L (4.7-6.1) M/uL Hgb 12.4 L (14.0-18.0) g/dL Hct 38.2 L (42-52) % MCV 88.4 (80-100) fL MCH 28.7 (25-34) pg MCHC 32.5 (32-36) g/dL RDW Std Deviation 42.8 (36.4-46.3) fL RDW Coeff of Tatyana 13.3 (11.5-14.5) % Plt Count 196 (130-400) K/uL MPV 10.9 H (7.4-10.4) fL Immature Gran % (Auto) 0.2 % Neut % (Auto) 63.6 % Lymph % (Auto) 26.8 % Rich % (Auto) 7.1 % Eos % (Auto) 2.1 % Baso % (Auto) 0.2 % Immature Gran # (Auto) 0.01 (0.00-0.02) K/uL Neut # (Auto) 2.96 (1.4-6.5) K/uL Lymph # (Auto) 1.25 (1.2-3.4) K/uL Rich # (Auto) 0.33 (0.11-0.59) K/uL Eos # (Auto) 0.10 (0-0.5) K/uL Baso # (Auto) 0.01 (0-0.2) K/uL PT Cancelled INR Cancelled APTT Cancelled PTT Ratio Cancelled VBG pH 7.37 (7.36-7.41) VBG pCO2 49 (38-50) mmHg VBG pO2 36 mmHg VBG HCO3 28 mmol/L VBG O2 Saturation 65.0 % VBG Base Excess 2.0 mEq/L Barometric Pressure 729.5 mm/Hg Sodium (136-145) mmol/L Potassium (3.5-5.1) mmol/L Chloride (98-107) mmol/L Carbon Dioxide (21-32) mmol/L Anion Gap (3-11) BUN (7-18) mg/dl Creatinine (0.6-1.4) mg/dl Est Cr Clr Drug Dosing ml/min Est GFR ( Amer) Est GFR (Non-Af Amer) BUN/Creatinine Ratio (10-20) Glucose (70-99) mg/dl POC Glucose (70-99) Estimat Average Glucose mg/dl Hemoglobin A1c (4.5-5.6) % Calcium (8.5-10.1) mg/dl Magnesium (1.8-2.4) mg/dl Total Bilirubin (0.2-1) mg/dl AST (15-37) U/L ALT (12-78) U/L Alkaline Phosphatase (45-117) U/L Troponin I (0-0.045) ng/ml NT-Pro-B Natriuret Pep (0-1800) pg/ml Total Protein (6.4-8.2) gm/dl Albumin (3.4-5.0) gm/dl Globulin (2.5-4.0) gm/dl Albumin/Globulin Ratio (0.9-2) Urine Color Urine Appearance (Clear) Urine pH (4.5-7.5) Ur Specific [place] (1.000-1.030) Urine Protein (Negative) Urine Glucose (UA) (Negative) Urine Ketones (Negative) Urine Blood (Negative) Urine Nitrite (Negative) Urine Bilirubin (Negative) Urine Urobilinogen (Negative) Ur Leukocyte Esterase (Negative) Urine WBC (Auto) (0-5) /hpf Urine RBC (Auto) (0-4) /hpf U Hyaline Cast (Auto) (0-5) /lpf U Epithel Cells (Auto) (0-5) /lpf Urine Bacteria (Auto) (Negative) 06/10/18 06/10/18 06/10/18 Range/Units 15:35 16:15 18:04 WBC (4.8-10.8) K/uL RBC (4.7-6.1) M/uL Hgb (14.0-18.0) g/dL Hct (42-52) % MCV (80-100) fL MCH (25-34) pg MCHC (32-36) g/dL RDW Std Deviation (36.4-46.3) fL RDW Coeff of Tatyana (11.5-14.5) % Plt Count (130-400) K/uL MPV (7.4-10.4) fL Immature Gran % (Auto) % Neut % (Auto) % Lymph % (Auto) % Rich % (Auto) % Eos % (Auto) % Baso % (Auto) % Immature Gran # (Auto) (0.00-0.02) K/uL Neut # (Auto) (1.4-6.5) K/uL Lymph # (Auto) (1.2-3.4) K/uL Rich # (Auto) (0.11-0.59) K/uL Eos # (Auto) (0-0.5) K/uL Baso # (Auto) (0-0.2) K/uL PT 10.7 INR 1.0 APTT 25.1 PTT Ratio 0.9 VBG pH (7.36-7.41) VBG pCO2 (38-50) mmHg VBG pO2 mmHg VBG HCO3 mmol/L VBG O2 Saturation % VBG Base Excess mEq/L Barometric Pressure mm/Hg Sodium 140 (136-145) mmol/L Potassium 4.1 (3.5-5.1) mmol/L Chloride 109 H (98-107) mmol/L Carbon Dioxide 27 (21-32) mmol/L Anion Gap 4.0 (3-11) BUN 11 (7-18) mg/dl Creatinine 0.80 (0.6-1.4) mg/dl Est Cr Clr Drug Dosing 57.5 ml/min Est GFR ( Amer) 93.1 Est GFR (Non-Af Amer) 80.3 BUN/Creatinine Ratio 14.4 (10-20) Glucose 87 (70-99) mg/dl POC Glucose (70-99) Estimat Average Glucose mg/dl Hemoglobin A1c (4.5-5.6) % Calcium 8.4 L (8.5-10.1) mg/dl Magnesium 1.8 (1.8-2.4) mg/dl Total Bilirubin 0.6 (0.2-1) mg/dl AST 55 H (15-37) U/L ALT 30 (12-78) U/L Alkaline Phosphatase 53 (45-117) U/L Troponin I < 0.015 (0-0.045) ng/ml NT-Pro-B Natriuret Pep 746 (0-1800) pg/ml Total Protein 7.1 (6.4-8.2) gm/dl Albumin 3.5 (3.4-5.0) gm/dl Globulin 3.6 (2.5-4.0) gm/dl Albumin/Globulin Ratio 1.0 (0.9-2) Urine Color Yellow Urine Appearance Clear (Clear) Urine pH 6.5 (4.5-7.5) Ur Specific [place] 1.011 (1.000-1.030) Urine Protein Negative (Negative) Urine Glucose (UA) Negative (Negative) Urine Ketones Negative (Negative) Urine Blood Negative (Negative) Urine Nitrite Negative (Negative) Urine Bilirubin Negative (Negative) Urine Urobilinogen Negative (Negative) Ur Leukocyte Esterase Trace H (Negative) Urine WBC (Auto) 1-5 (0-5) /hpf Urine RBC (Auto) 0-4 (0-4) /hpf U Hyaline Cast (Auto) 1-5 (0-5) /lpf U Epithel Cells (Auto) 0-5 (0-5) /lpf Urine Bacteria (Auto) Negative (Negative) 06/10/18 06/10/18 06/10/18 Range/Units 20:52 22:06 22:08 WBC (4.8-10.8) K/uL RBC (4.7-6.1) M/uL Hgb (14.0-18.0) g/dL Hct (42-52) % MCV (80-100) fL MCH (25-34) pg MCHC (32-36) g/dL RDW Std Deviation (36.4-46.3) fL RDW Coeff of Tatyana (11.5-14.5) % Plt Count (130-400) K/uL MPV (7.4-10.4) fL Immature Gran % (Auto) % Neut % (Auto) % Lymph % (Auto) % Rich % (Auto) % Eos % (Auto) % Baso % (Auto) % Immature Gran # (Auto) (0.00-0.02) K/uL Neut # (Auto) (1.4-6.5) K/uL Lymph # (Auto) (1.2-3.4) K/uL Rich # (Auto) (0.11-0.59) K/uL Eos # (Auto) (0-0.5) K/uL Baso # (Auto) (0-0.2) K/uL PT INR APTT PTT Ratio VBG pH (7.36-7.41) VBG pCO2 (38-50) mmHg VBG pO2 mmHg VBG HCO3 mmol/L VBG O2 Saturation % VBG Base Excess mEq/L Barometric Pressure mm/Hg Sodium (136-145) mmol/L Potassium (3.5-5.1) mmol/L Chloride (98-107) mmol/L Carbon Dioxide (21-32) mmol/L Anion Gap (3-11) BUN (7-18) mg/dl Creatinine (0.6-1.4) mg/dl Est Cr Clr Drug Dosing ml/min Est GFR ( Amer) Est GFR (Non-Af Amer) BUN/Creatinine Ratio (10-20) Glucose (70-99) mg/dl POC Glucose 77 78 (70-99) Estimat Average Glucose mg/dl Hemoglobin A1c (4.5-5.6) % Calcium (8.5-10.1) mg/dl Magnesium (1.8-2.4) mg/dl Total Bilirubin (0.2-1) mg/dl AST (15-37) U/L ALT (12-78) U/L Alkaline Phosphatase (45-117) U/L Troponin I 0.018 (0-0.045) ng/ml NT-Pro-B Natriuret Pep (0-1800) pg/ml Total Protein (6.4-8.2) gm/dl Albumin (3.4-5.0) gm/dl Globulin (2.5-4.0) gm/dl Albumin/Globulin Ratio (0.9-2) Urine Color Urine Appearance (Clear) Urine pH (4.5-7.5) Ur Specific [place] (1.000-1.030) Urine Protein (Negative) Urine Glucose (UA) (Negative) Urine Ketones (Negative) Urine Blood (Negative) Urine Nitrite (Negative) Urine Bilirubin (Negative) Urine Urobilinogen (Negative) Ur Leukocyte Esterase (Negative) Urine WBC (Auto) (0-5) /hpf Urine RBC (Auto) (0-4) /hpf U Hyaline Cast (Auto) (0-5) /lpf U Epithel Cells (Auto) (0-5) /lpf Urine Bacteria (Auto) (Negative) 06/11/18 06/11/18 06/11/18 Range/Units 03:38 07:21 07:21 WBC 5.59 (4.8-10.8) K/uL RBC 4.39 L (4.7-6.1) M/uL Hgb 12.6 L (14.0-18.0) g/dL Hct 38.8 L (42-52) % MCV 88.4 (80-100) fL MCH 28.7 (25-34) pg MCHC 32.5 (32-36) g/dL RDW Std Deviation 43.4 (36.4-46.3) fL RDW Coeff of Tatyana 13.4 (11.5-14.5) % Plt Count 180 (130-400) K/uL MPV 10.5 H (7.4-10.4) fL Immature Gran % (Auto) % Neut % (Auto) % Lymph % (Auto) % Rich % (Auto) % Eos % (Auto) % Baso % (Auto) % Immature Gran # (Auto) (0.00-0.02) K/uL Neut # (Auto) (1.4-6.5) K/uL Lymph # (Auto) (1.2-3.4) K/uL Rich # (Auto) (0.11-0.59) K/uL Eos # (Auto) (0-0.5) K/uL Baso # (Auto) (0-0.2) K/uL PT INR APTT PTT Ratio VBG pH (7.36-7.41) VBG pCO2 (38-50) mmHg VBG pO2 mmHg VBG HCO3 mmol/L VBG O2 Saturation % VBG Base Excess mEq/L Barometric Pressure mm/Hg Sodium 140 (136-145) mmol/L Potassium 4.0 (3.5-5.1) mmol/L Chloride 106 (98-107) mmol/L Carbon Dioxide 28 (21-32) mmol/L Anion Gap 6.0 (3-11) BUN 19 H D (7-18) mg/dl Creatinine 0.95 (0.6-1.4) mg/dl Est Cr Clr Drug Dosing 47.1 ml/min Est GFR ( Amer) 83.1 Est GFR (Non-Af Amer) 71.7 BUN/Creatinine Ratio 20.1 H (10-20) Glucose 96 (70-99) mg/dl POC Glucose 92 (70-99) Estimat Average Glucose mg/dl Hemoglobin A1c (4.5-5.6) % Calcium 8.7 (8.5-10.1) mg/dl Magnesium (1.8-2.4) mg/dl Total Bilirubin 0.5 (0.2-1) mg/dl AST 57 H (15-37) U/L ALT 32 (12-78) U/L Alkaline Phosphatase 56 (45-117) U/L Troponin I 0.023 (0-0.045) ng/ml NT-Pro-B Natriuret Pep (0-1800) pg/ml Total Protein 7.0 (6.4-8.2) gm/dl Albumin 3.5 (3.4-5.0) gm/dl Globulin 3.5 (2.5-4.0) gm/dl Albumin/Globulin Ratio 1.0 (0.9-2) Urine Color Urine Appearance (Clear) Urine pH (4.5-7.5) Ur Specific [place] (1.000-1.030) Urine Protein (Negative) Urine Glucose (UA) (Negative) Urine Ketones (Negative) Urine Blood (Negative) Urine Nitrite (Negative) Urine Bilirubin (Negative) Urine Urobilinogen (Negative) Ur Leukocyte Esterase (Negative) Urine WBC (Auto) (0-5) /hpf Urine RBC (Auto) (0-4) /hpf U Hyaline Cast (Auto) (0-5) /lpf U Epithel Cells (Auto) (0-5) /lpf Urine Bacteria (Auto) (Negative) 06/11/18 06/11/18 06/11/18 Range/Units 07:21 07:42 11:37 WBC (4.8-10.8) K/uL RBC (4.7-6.1) M/uL Hgb (14.0-18.0) g/dL Hct (42-52) % MCV (80-100) fL MCH (25-34) pg MCHC (32-36) g/dL RDW Std Deviation (36.4-46.3) fL RDW Coeff of Tatyana (11.5-14.5) % Plt Count (130-400) K/uL MPV (7.4-10.4) fL Immature Gran % (Auto) % Neut % (Auto) % Lymph % (Auto) % Rich % (Auto) % Eos % (Auto) % Baso % (Auto) % Immature Gran # (Auto) (0.00-0.02) K/uL Neut # (Auto) (1.4-6.5) K/uL Lymph # (Auto) (1.2-3.4) K/uL Rich # (Auto) (0.11-0.59) K/uL Eos # (Auto) (0-0.5) K/uL Baso # (Auto) (0-0.2) K/uL PT INR APTT PTT Ratio VBG pH (7.36-7.41) VBG pCO2 (38-50) mmHg VBG pO2 mmHg VBG HCO3 mmol/L VBG O2 Saturation % VBG Base Excess mEq/L Barometric Pressure mm/Hg Sodium (136-145) mmol/L Potassium (3.5-5.1) mmol/L Chloride (98-107) mmol/L Carbon Dioxide (21-32) mmol/L Anion Gap (3-11) BUN (7-18) mg/dl Creatinine (0.6-1.4) mg/dl Est Cr Clr Drug Dosing ml/min Est GFR ( Amer) Est GFR (Non-Af Amer) BUN/Creatinine Ratio (10-20) Glucose (70-99) mg/dl POC Glucose 96 110 H (70-99) Estimat Average Glucose 137 mg/dl Hemoglobin A1c 6.4 H (4.5-5.6) % Calcium (8.5-10.1) mg/dl Magnesium (1.8-2.4) mg/dl Total Bilirubin (0.2-1) mg/dl AST (15-37) U/L ALT (12-78) U/L Alkaline Phosphatase (45-117) U/L Troponin I (0-0.045) ng/ml NT-Pro-B Natriuret Pep (0-1800) pg/ml Total Protein (6.4-8.2) gm/dl Albumin (3.4-5.0) gm/dl Globulin (2.5-4.0) gm/dl Albumin/Globulin Ratio (0.9-2) Urine Color Urine Appearance (Clear) Urine pH (4.5-7.5) Ur Specific [place] (1.000-1.030) Urine Protein (Negative) Urine Glucose (UA) (Negative) Urine Ketones (Negative) Urine Blood (Negative) Urine Nitrite (Negative) Urine Bilirubin (Negative) Urine Urobilinogen (Negative) Ur Leukocyte Esterase (Negative) Urine WBC (Auto) (0-5) /hpf Urine RBC (Auto) (0-4) /hpf U Hyaline Cast (Auto) (0-5) /lpf U Epithel Cells (Auto) (0-5) /lpf Urine Bacteria (Auto) (Negative) Imaging Data Radiologist's Impression: Radiology results as stated below per my review and the radiologist's interpretation: XR chest 1V portable CLINICAL HISTORY: 87 years-old Male presenting with Dyspnea. TECHNIQUE: Portable upright AP view of the chest was obtained. COMPARISON: 08/05/2011. FINDINGS: Median sternotomy wires and mediastinal surgical clips unchanged. Cardiac silhouette moderately enlarged. Pulmonary vascular prominence noted. Bronchial wall cuffing. Mildly low lung volumes. Minimal basilar opacities. No pleural effusion or pneumothorax. Degenerative changes of the thoracic spine. Upper abdomen normal. IMPRESSION: 1. Cardiac megaly with volume overload and congestive change. No mailka pulmonary edema. 2. Bibasilar atelectasis with mildly low lung volumes. Electronically signed by: Jonn Mena M.D. 06/10/2018 3:56 PM ECG Data Attestation: I personally reviewed and interpreted this ECG as follows: Indication: SOB/dyspnea Rate (beats per minute): 51 Rhythm: sinus bradycardia Findings: + other (normal axis) and + prolonged QT; no acute ischemic change Blood Pressure Blood Pressure Findings: Elevated blood pressure MDM Narrative The patient is an 87 year old male with a past medical history of HTN, hyperlipidemia, tyle 2 diabetes, GERD, BPH, hypothyroidism, and CAD s/p CABG who presents to the Emergency Room with complaints of a persistent shortness of breath that began a month ago. Differential diagnoses includes but is not limited to: pneumonia, bronchitis, COPD/Asthma exacerbation, pneumothorax, pulmonary embolism, congestive heart failure, and acute coronary syndrome. Patient was seen and evaluated the bedside. The patient was complaining worsening shortness of breath. Patient was seen in express referred here with concerns for pneumonia. Patient is a prior history of CABG hypertension hyperlipidemia. The patient does not complain of chest pains but shortness of breath. Patient does have some trace crackles lower extremity edema. Patient chest film shows cardiomegaly with some mild congestive change. The patient did undergo an ambulatory trial and desatted to 8586% on room air. The patient does not have a prior history of oxygen use. Patient was given Lasix and admitted to the medicine service. Impression & Plan CHF exacerbation, Hypoxia, Shortness of breath Discharge Plan Visit Data *Final* Discharge Date/Time: 06/10/18 18:30 Chief Complaint: Respiratory Problems Stated Complaint: LUNG PROBLEM ED Provider: Demian Fontenot Discharge Problem: CHF exacerbation, Hypoxia, Shortness of breath Patient Disposition: Admitted As Inpatient Discharge Instructions Interventions: ED Discharge Assessment Last Done: 06/10/18 18:30 The scribe's documentation has been prepared under my direction and personally reviewed by me in its entirety. I confirm that the note above accurately reflects all work, treatment, procedures, and medical decision making performed by me.
[2018-06-11] MEDS: LEVOTHYROXINE SODIUM 75 MCG TABLET PO SCH (05:49)
[2018-06-11] MEDS: VITAMIN B COMPLEX TAB PO SCH (07:34)
[2018-06-11] MEDS: ATENOLOL 25 MG TABLET PO SCH (07:35)
[2018-06-11] MEDS: PANTOprazole 40 MG TAB PO SCH (07:35)
[2018-06-11] MEDS: ISOSORBIDE MONO EXTENDED REL 60 MG TABCR PO SCH (07:35)
[2018-06-11] MEDS: ASPIRIN 81 MG ECTAB PO SCH (07:35)
[2018-06-11] MEDS: FINASTERIDE 5 MG TAB PO SCH (07:35)
[2018-06-11] MEDS: ATORVASTATIN 40 MG TAB PO SCH (07:35)
[2018-06-11] MEDS: PREGABALIN 150 MG CAP PO SCH ×2 (07:35→19:56)
[2018-06-11] MEDS: METFORMIN HCL 500 MG TAB PO SCH ×2 (07:35→17:23)
[2018-06-11] MEDS: TAMSULOSIN HCL 0.4 MG CAP PO SCH (07:35)
[2018-06-11 07:42] LABS: Hematocrit (blood only) 38.8 % (42-52); Hemoglobin 12.6 g/dL (14.0-18.0); Mean Corpuscular Hgb Conc 32.5 g/dL (32-36); Mean Corpuscular Volume 88.4 fL (80-100); Mean Platelet Volume 10.5 fL (7.4-10.4); Platelet Count 180 K/uL (130-400); RDW Coefficient of Variation 13.4 % (11.5-14.5); RDW Standard Deviation 43.4 fL (36.4-46.3); Red Blood Count 4.39 M/uL (4.7-6.1); White Blood Count 5.59 K/uL (4.8-10.8)
[2018-06-11] MEDS: INSULIN ASPART 100 UNITS/ML 3 ML PEN SC SCH ×4 (08:12→22:22)
[2018-06-11 08:15] LABS: Albumin Level 3.5 gm/dl (3.4-5.0); BUN Creatinine Ratio 20.1 (10-20); Calcium 8.7 mg/dl (8.5-10.1); Creatinine Clr Calc Pharmacy 47.1 ml/min; Est GFR (African American) 83.1; Est GFR (Non-African American) 71.7
[2018-06-11 08:19] LABS: Bilirubin,Total 0.5 mg/dl (0.2-1); Globulin 3.5 gm/dl (2.5-4.0); Troponin I 0.023 ng/ml (0-0.045)
[2018-06-11 09:18] LABS: Estimated Average Glucose 137 mg/dl; Hemoglobin A1C 6.4 % (4.5-5.6)
--- NOTE | 2018-06-11 13:13 | Hospitalist Progress Note ---
Date of Service June 11, 2018 Assessment & Plan (1) Hypoxia: O2 sats initially dropped to 87% while in the ER, pt was placed on 2 L O2 and sats have been stable in high 90s. Initially thought to be due to CHF; however, given his normal BNP, lack of CHF symptoms (LE edema, JVD), and fairly normal CXR, less likely. Only recieved Lasix 40mg IV x 1. - Discussed with Dr. Yuen who feels it is less likely CHF - Echo imaging done; read pending - Follow up - Hold further Lasix - Wean O2 as able (No home O2)- Currently 96% on room air - Will have RN walk patient and see if he desaturates - Outpatient notes do not indicate any primary pulmonary issues. If he remains hypoxemic with exertion despite feeling CHF is unlikely, may want to pursue inpatient PFTs inpatient vs. outpatient for primary lung etiology. (2) CAD (coronary artery disease) of artery bypass graft: Troponins all normal. No chest pain. - Continue atenolol 25 mg daily, atorvastatin 40 mg daily, imdur 60 mg daily (3) Hyperlipidemia: - Continue statin (4) Hypertension: BP is normal at 110/60 at present. - Cont BP meds as above (5) GERD (gastroesophageal reflux disease): - Continue omeprazole (6) Type 2 diabetes mellitus: A1c was 6.4% this admission. - Hold metformin - Sliding scale insulin (7) BPH (benign prostatic hyperplasia): No LUTS. - Continue Flomax and Proscar - No issues with urination since being given Lasix. If decreased outs then bladder scan to measure if retaining. (8) Benign essential tremor: - Continue vitamin supplementation, well controlled (9) Peripheral neuropathy: Pt follows with neurology as outpatient. He has had EMG performed as outpatient. - Continue Lyrica - Per initial note, he was having some worsening neuropathy in his feet due to LE edema. However, he does not mention this to me, and also does not have any significant LE edema, so perhaps it resolved prior to my seeing him. (10) Hypothyroidism: TSH was 2.2 in 03/2018. No signs/symptoms of hypo-/hyperthyroidism. - Continue levothyroxine 75 mcg daily (11) DVT prophylaxis: Lovenox 40mg daily Subjective Feeling much better today. Reports improved/resolved shortness of breath. Reports no fevers/chills, chest pain, shortness of breath, abdominal pain, nausea, or vomiting. Physical Exam Vital Signs (Past 24 Hours): Last Vital Signs Temp 36.6 C 06/11/18 07:30 Pulse 55 L 06/11/18 11:05 Resp 16 06/11/18 11:05 BP 109/63 06/11/18 11:05 Pulse Ox 96 06/11/18 11:05 Constitutional: WD/WN, vitals as above Eyes: normal visual lopez by confrontation and + anicteric sclerae Neck: normal visual inspection and trachea midline Respiratory: normal respiratory effort; no respiratory distress Auscultation: no wheezes Cardiovascular: Rate/Rhythm: regular rate and regular rhythm Gastrointestinal (Abdomen): Inspection/Auscultation: abdomen not distended Percussion/Palpation: abdomen soft; abdomen nontender Musculoskeletal: Head/Neck/Chest: normocephalic and head atraumatic Skin: no rashes, warm and dry Neurologic: awake; not confused Speech / Cognition: normal speech Psychiatric: A+Ox3, euthymic affect
--- NOTE | 2018-06-11 14:34 | Cardiology Consultation ---
Date of Consultation June 11, 2018 Assessment & Plan (1) Hypoxia: The patient was admitted with hypoxia which was felt potentially related to diastolic CHF. However, chest x-ray fails to demonstrate significant interstitial edema, and a BNP value was normal. Physical examination today sugge sts no evidence of decompensated CHF, although the patient did receive a dose of intravenous Lasix in the emergency room. The patient appears well compensated at this time. No further cardiac evaluation necessary. (2) CAD (coronary artery disease) of artery bypass graft: As described above, patient underwent 3 vessel bypass in 1994. The saphenous vein graft to the ramus intermedius was occluded at the time of a cardiac catheterization in March 2016. [place] coronary disease was non intervenable. Would continue with conservative medical care. (3) Hypertension: Controlled on current medical regimen. (4) Hyperlipidemia: Would continue atorvastatin as you are. History of Present Illness Attending Physician: Luis A Jacinto MD History of Present Illness Mr. Vaughn is an 87-year-old male admitted yesterday with hypoxia and presumed CHF. This consultations are ptosis his cardiac management. Of note, the patient is well known to me from the outpatient setting. Patient claims he is in his usual state of health until approximately 3-4 weeks prior to presentation. He began to experience progressive exertional dyspnea. On the day of presentation, he was only able to walk 50 feet before noting limiting dyspnea. At no time has he experienced angina pectoris. He further denies syncope, presyncope, PND, orthopnea, palpitations, lower extremity edema, and claudication. The patient's cardiac history began back in 1994 when he suffered an anterior wall myocardial infarction. He eventually underwent a 3 vessel bypass procedure and did well until episode of unstable angina pectoris in March 2016. Cardiac catheterization at that time revealed non intervenable nez perce coronary disease. There was a 30% distal LM, totally occluded proximal LAD, 30% proximal LCX, and a totally occluded proximal RCA. The HOFF graft to the LAD and the SVG to the RCA were both patent. The SVG to the ramus intermedius was occluded. There was good distal collateralization. Medical management was recommended at that time. Currently, the patient is resting comfortably and without complaints. He is able to ambulate in the hallway without difficulty. Past medical and surgical history 1. Coronary artery disease-see above 2. CABG times 3. Hypertension 4. Hypercholesterolemia 5. Diastolic dysfunction 6. Mild mitral regurgitation 7. Diabetes mellitus 8. Hypothyroidism 9. GERD 10. C5 radiculopathy 11. BPH 12. Generalized peripheral neuropathy 13. DJD 14. Benign essential tremor Social history Single, lives alone No tobacco or alcohol Family history Noncontributory Review of systems A 10 point review of systems was undertaken and negative except for that described above. Allergies Allergy/AdvReac Type Severity Reaction Status Date / Time milk AdvReac Unknown GI SYMPTOMS Verified 06/10/18 16:22 Home Medications Home Medications Medication Instructions Recorded Confirmed Type aspirin [Aspir-81] 81 mg PO DAILY 02/26/18 06/10/18 History atenolol [Tenormin] 25 mg PO DAILY 02/26/18 06/10/18 History atorvastatin [Lipitor] 40 mg PO DAILY 02/26/18 06/10/18 History finasteride [Proscar] 5 mg PO DAILY 02/26/18 06/10/18 History isosorbide mononitrate 60 mg PO DAILY 02/26/18 06/10/18 History levothyroxine [Synthroid] 75 mg PO DAILY 02/26/18 06/10/18 History lidocaine 1 applic TOPICAL TID PRN 02/26/18 06/10/18 History metformin [Glucophage] 500 mg PO Q12 02/26/18 06/10/18 History nitroglycerin [Nitrostat] 0.4 mg SUBLINGUAL UD PRN 02/26/18 06/10/18 History omeprazole 20 mg PO DAILY 02/26/18 06/10/18 History pregabalin [Lyrica] 150 mg PO BID 02/26/18 06/10/18 History tamsulosin [Flomax] 0.4 mg PO DAILY 02/26/18 06/10/18 History vitamin B complex 1 tab PO DAILY 06/10/18 06/10/18 History Patient History Medical History Hypoxia Hypothyroidism Peripheral neuropathy Benign essential tremor Osteoarthritis CAD (coronary artery disease) of artery bypass graft BPH (benign prostatic hyperplasia) Hyperlipidemia GERD (gastroesophageal reflux disease) Type 2 diabetes mellitus Hypertension Surgical History History of coronary artery bypass graft Family History Other No significant family history Social History Preferred Language: Other Communication Ability: Effective [employer] Department Operator Required: Yes Beliefs That Will Affect Care: None Current Living Situation: Alone Other Information That Helps Us Care for You: No Feels Safe at Home: Yes Safety Concerns: Feels Safe At This Time Smoking Status: Former smoker Hx Alcohol Use: Yes Hx Substance Use: No Physical Exam Vital Signs (Past 24 Hours): Last Vital Signs Temp 36.6 C 06/11/18 07:30 Pulse 55 L 06/11/18 11:05 Resp 16 06/11/18 11:05 BP 109/63 06/11/18 11:05 Pulse Ox 96 06/11/18 11:05 Physical Exam: In general is well-developed well-nourished male no acute distress. HEENT exam is negative. Neck is supple with full carotid upstrokes. No obvious bruits. Jugular venous pressure is flat at 90 degrees. No thyromegaly. Cardiovascular exam reveals a regular rhythm with normal S1 and S2. Heart sounds are distant. No obvious murmurs. Lungs are clear without rales, rhonchi, or wheezes. Abdomen is soft nontender without bruits. Extremities reveal intact radial artery pulses bilaterally. There is no peripheral edema. Results & Data Laboratory Results CBC notes hemoglobin 12.6, medically 30.8, white count 5.59, and platelet count [id number]. Electrolytes episode of 140, potassium 4.0, chloride 106, bicarb 28, BUN 19, creatinine 0.95, and glucose of 96. Initial troponin was less than 0.015 with follow-up as of 0.018 in 0.023. BNP was normal at 746. Diagnostic Findings ECG notes sinus bradycardia and poor R-wave progression across the anterior precordium. Chest x-ray notes cardiomegaly but no failure.
[2018-06-11] MEDS: ENOXAPARIN INJ 40 MG/0.4 ML SYR SQ SCH (19:56)
[2018-06-12] MEDS: LEVOTHYROXINE SODIUM 75 MCG TABLET PO SCH (05:57)
[2018-06-12 07:19] LABS: Hematocrit (blood only) 36.5 % (42-52); Mean Corpuscular Hgb Conc 32.9 g/dL (32-36); Mean Corpuscular Volume 88.8 fL (80-100); Mean Platelet Volume 10.7 fL (7.4-10.4); Platelet Count 152 K/uL (130-400); RDW Coefficient of Variation 13.3 % (11.5-14.5); Red Blood Count 4.11 M/uL (4.7-6.1); White Blood Count 4.64 K/uL (4.8-10.8)
[2018-06-12] MEDS: ATENOLOL 25 MG TABLET PO SCH (07:35)
[2018-06-12] MEDS: ATORVASTATIN 40 MG TAB PO SCH (07:35)
[2018-06-12] MEDS: ISOSORBIDE MONO EXTENDED REL 60 MG TABCR PO SCH (07:35)
[2018-06-12] MEDS: METFORMIN HCL 500 MG TAB PO SCH (07:36)
[2018-06-12] MEDS: VITAMIN B COMPLEX TAB PO SCH (07:36)
[2018-06-12] MEDS: TAMSULOSIN HCL 0.4 MG CAP PO SCH (07:36)
[2018-06-12] MEDS: FINASTERIDE 5 MG TAB PO SCH (07:36)
[2018-06-12] MEDS: PANTOprazole 40 MG TAB PO SCH (07:36)
[2018-06-12] MEDS: PREGABALIN 150 MG CAP PO SCH (07:37)
[2018-06-12] MEDS: ASPIRIN 81 MG ECTAB PO SCH (07:37)
[2018-06-12 08:02] LABS: Albumin Globulin Ratio 0.9 (0.9-2); Albumin Level 3.1 gm/dl (3.4-5.0); BUN Creatinine Ratio 23.3 (10-20); Bilirubin,Total 0.7 mg/dl (0.2-1); Calcium 8.6 mg/dl (8.5-10.1); Creatinine Clr Calc Pharmacy 49.8 ml/min; Est GFR (African American) 88.7; Est GFR (Non-African American) 76.5; Globulin 3.3 gm/dl (2.5-4.0); Total Protein 6.4 gm/dl (6.4-8.2)
[2018-06-12] MEDS: INSULIN ASPART 100 UNITS/ML 3 ML PEN SC SCH ×2 (08:06→12:20)
[2018-06-12 09:24] LABS: Potassium 3.8 mmol/L (3.5-5.1)
--- NOTE | 2018-06-12 14:59 | Discharge Summary ---
Date of Service June 12, 2018 Admission HPI Per Admitting Provider This is a 87 yo Khmer speaking M with PMhx of CAD s/p CABG x 3in 1994 for an acute AK, HTN, HLD, osteoarthritis, BPH with LUTS, GERD, hypothyroidism, peripheral neuropathy, and benign essential tremor who presents with worsening shortness of breath. Pt notes this has been coming on for 20-24 days and progressively worsening. He was walking this morning and had significant shortness of breath, he denies any chest pain or discomfort. He does not need oxygen at home. He feels swollen in his legs and feet, and feels his neuropathy in both feet is worse in the past few days. When questioned about diet and he considers it well balanced. He drinks alcohol very rarely. Pt typically is able to walk for 30 minutes at a time, and does this for routine exercise 3x per week. Pt reports being treated for pneumonia about 6 months ago, and has not felt up to his baseline since then. He does follow routinely with cardiology- Dr. Yuen. Pt was last seen 1 month ago as routine f/u and everything at that appointment went well, no med changes. Pt has been administered 1 dose of Lasix 40 mg IV and has been up walking without difficult to urninate now 3x. CXR reviewed showing volume overload. Principal Diagnosis Acute hypoxic respiratory failure Discharge Exam Constitutional WD/WN, vitals as above Eyes PERRL, conjunctivae normal, anicteric sclerae ENMT external ear and nose normal, oropharynx normal Neck trachea midline, no thyromegaly Respiratory normal respiratory effort, lungs clear to auscultation Cardiovascular RRR, no murmur, no edema Gastrointestinal (Abdomen) normal bowel sounds, soft, nontender, no hepatosplenomegaly Musculoskeletal Extremities: extremities normal to inspection; no cyanosis and no clubbing Skin no rashes, warm and dry Neurologic moves all extremities and awake; no focal motor deficits Psychiatric A+Ox3, euthymic affect Discharge Data Allergies Allergy/AdvReac Type Severity Reaction Status Date / Time milk AdvReac Unknown GI SYMPTOMS Verified 06/10/18 16:22 Consultations 06/10/18 17:45 ED Decision to Admit Stat 06/10/18 18:06 Consult Cardiology Routine Consult Case Management - Discharge Planning Routine Hospital Course (1) Hypoxia: O2 sats initially dropped to 87% while in the ER, pt was placed on 2 L O2 and sats have been stable in high 90s. Initially thought to be due to CHF; however, given his normal BNP, lack of CHF symptoms (LE edema, JVD), and fairly normal CXR, less likely. Only recieved Lasix 40mg IV x 1. - Discussed with Dr. Yuen who feels it is less likely diastolic CHF - Echo imaging done;LVEF is preserved, no significant valvular disease -given his symptoms and hypoxia did improve with lasix, will dc to home on lasix 20mg daily - Outpatient notes do not indicate any primary pulmonary issues. If he remains hypoxemic with exertion despite feeling CHF is unlikely, may want to pursue PFTs as an outpatient for primary lung etiology. POx with ambulation day of dc is 92-94% on RA, doing better -dc to home on lasix 20mg daily as did have some volume overload on exam, f/u with PCP and Cardio closely (2) CAD (coronary artery disease) of artery bypass graft: Troponins all normal. No chest pain. - Continue atenolol 25 mg daily, atorvastatin 40 mg daily, imdur 60 mg daily (3) Hyperlipidemia: - Continue statin (4) Hypertension: BP is normal - Cont BP meds as above (5) GERD (gastroesophageal reflux disease): - Continue omeprazole (6) Type 2 diabetes mellitus: A1c was 6.4% this admission. - Sliding scale insulin was provided -restart metformin on discharge (7) BPH (benign prostatic hyperplasia): No LUTS. - Continue Flomax and Proscar - No issues with urination since being given Lasix (8) Benign essential tremor: - Continue vitamin supplementation, well controlled (9) Peripheral neuropathy: Pt follows with neurology as outpatient. He has had EMG performed as outpatient. - Continue Lyrica - Per initial note, he was having some worsening neuropathy in his feet due to LE edema. (10) Hypothyroidism: TSH was 2.2 in 03/2018. No signs/symptoms of hypo-/hyperthyroidism. - Continue levothyroxine 75 mcg daily (11) DVT prophylaxis: Lovenox 40mg daily was provided Dispo-doing well, stable for dc to home Total Time Total Time Spent Total Time Spent (In Minutes): >30 min Total Time Includes: Examination of the Patient, Discharge Planning, Medication Reconciliation and Communication With Other Providers (Cardiology Dr. Yuen) Discharge Plan Discharge Items Patient Disposition: Home - Self-Care Reason For Visit: RESPIRATORY DISTRESS Discharge Diagnosis: Hypoxia, Congestive heart failure exacerbation Discharge Goals: Diagnostic testing, Improve disease control, Learn about illness and Therapeutic intervention Activity: Resume your previous activity Lifting: Gradually increase as tolerated Bathing: No limitations Exercise/Sports: Gradually increase as tolerated Driving/Machine Use: No limitations Non-emergency contact: Primary Care Provider and [employer] Follow-up/Referrals: Darin Yuen MD [Physician] - 07/07/18 1:30 pm (follow up appointment with your heart doctor) Darin Campbell MD [Primary Care Provider] - 06/18/18 9:45 am (follow up appointment at your primary care physician office with Tia, physician furniture removalist's assistant) Diet: Carb Consistent or DM2, Heart Healthy and Low Sodium (2gm) Addtl Provider Instructions: You were admitted with low oxygen levels and shortness of breath. You had excess fluid in your lungs due to congestive heart failure. You were treated with a diuretic (water pill) called selene and had improvement. Your oxygen levels were 92% with walking at the time of discharge which was an improvement from previous. You lost several pounds of fluid with taking the diuretic. Please follow up with your PCP and [employer] within 2 weeks-these appointments will be scheduled for you. Prescriptions: New furosemide 20 mg Tablet 20 mg PO QAM Qty: 30 RF: 0 Continued atenolol [Tenormin] 25 mg tablet 25 mg PO DAILY RF: 0 levothyroxine [Synthroid] 75 mcg tablet 75 mg PO DAILY RF: 0 isosorbide mononitrate 60 mg tablet extended release 24 hr 60 mg PO DAILY RF: 0 tamsulosin [Flomax] 0.4 mg capsule 0.4 mg PO DAILY RF: 0 finasteride [Proscar] 5 mg tablet 5 mg PO DAILY RF: 0 Lyrica 150 mg Capsule 150 mg PO BID RF: 0 aspirin [Aspir-81] 81 mg Tablet,Delayed Release (Dr/Ec) 81 mg PO DAILY RF: 0 omeprazole 20 mg capsule,delayed release(DR/EC) 20 mg PO DAILY RF: 0 atorvastatin [Lipitor] 40 mg tablet 40 mg PO DAILY RF: 0 metformin [Glucophage] 500 mg tablet 500 mg PO Q12 RF: 0 lidocaine 4 % Cream 1 applic topical TID PRN (Reason: areas of pain) RF: 0 nitroglycerin [Nitrostat] 0.4 mg Tablet, Sublingual 0.4 mg Sublingual UD PRN (Reason: Chest Pain) RF: 0 vitamin B complex Tablet 1 tab PO DAILY RF: 0 Stand-Alone Forms: [facility] Discharge Orders: Discharge Order (Routine); Ordered 06/12/18 Ordered By: Brittany Avila Admission Data Admit Date/Time: 06/10/18 18:05 Attending Provider: Brittany Avila Admit Provider: Vanessa Gonzalez Primary Care Provider: Darin Campbell Other Providers: Darin Yuen Service: Telemetry Medical Other Interventions: Discharge Summary Assessment (RN) Last Done: 06/12/18 15:05 Pending Studies at Discharge: No DC Date/Time DO NOT enter until pt leaves facility: 06/12/18 15:25
[2018-06-12] MEDS ORDERED: FUROSEMIDE 20 MG TAB PO SCH (15:00)
== END 2018-06-12 15:25 | disposition home or self-care (01) | DRG 206 ==
LOC: ED 14:47 → SUATTDRO 18:05 → 2N 18:05
DX: I25.810 Atherosclerosis of coronary artery bypass graft(s) without angina pectoris; Z91.011 Allergy to milk products; E87.70 Fluid overload, unspecified; R09.02 Hypoxemia; N40.0 Benign prostatic hyperplasia without lower urinary tract symptoms; Z79.84 Long term (current) use of oral hypoglycemic drugs; K21.9 Gastro-esophageal reflux disease without esophagitis; Z79.899 Other long term (current) drug therapy; I25.2 Old myocardial infarction; E78.5 Hyperlipidemia, unspecified; Z87.891 Personal history of nicotine dependence; E11.42 Type 2 diabetes mellitus with diabetic polyneuropathy; Z79.82 Long term (current) use of aspirin; G25.0 Essential tremor; E03.9 Hypothyroidism, unspecified; I10 Essential (primary) hypertension